=== PATIENT | male | born 1965 | race Caucasian/White ===

== ENCOUNTER 2020-09-28 09:19 | Day surgery (SDC) | payer OTHER ==
[~2020-09-28] VITALS: Ht 175.3 cm; Wt 99.3 kg
--- NOTE | ~2020-09-28 | O ---
[facility] [place] [address] OPERATIVE REPORT Name: MARTÍNEZ CROWDER Room #: 150-3 [facility] M.R.#: [id number] Admission: 09/28/20 Attend Phys: Edilia Jones, Discharge: Date of : 65 Report #: [id number] THIS REPORT FOR: cc: Patricia Tapia MD, Laura A. MD Deardorff,Edilia Mcgarry MD ~ DOC #: [id number] Edilia Jones MD DATE OF SERVICE: 09/28/2020 DATE OF SURGERY: 09/28/2020 PREOPERATIVE DIAGNOSIS: Left palm flexor tenosynovitis of the ring finger. POSTOPERATIVE DIAGNOSIS: Left palm flexor tenosynovitis of the ring finger. PROCEDURE PERFORMED: Left palm incision and debridement with flexor tenosynovectomy. SURGEON: Dr. Edilia Jones. TYPE OF ANESTHESIA: General mask anesthesia. ESTIMATED BLOOD LOSS: Minimal. TOURNIQUET TIME: 20 minutes. COMPLICATIONS: None. CONDITION: Stable. DISPOSITION: To recovery room. 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 He has had multiple episodes of spontaneous opening of the skin and drainage. It has subsequently healed over. We discussed the risks, benefits, alternatives and complications of surgery including but not limited to infection, damage to vessels or nerves, recurrence. We discussed due to his infection, he will have some stiffness in that finger that is residual. We discussed the rationale for doing the surgery is due to multiple episodes of spontaneous rupture of the skin and drainage as well as now he is on the appropriate antibiotics due to the long nature of determining the culture results as well as debriding the infection to decrease any potential tendon rupture. Informed consent was obtained. The correct extremity was identified and labeled myself after verbal confirmation of the patient as well as visual confirmation and signed informed consent. [address] [address] OPERATIVE REPORT Name: MARTÍNEZ CROWDER Room #: 150-3 [facility] M.R.#: [id number] Admission: 09/28/20 Attend Phys: Edilia Jones, Discharge: Date of : 65 Report #: [id number] DESCRIPTION OF PROCEDURE: The patient was brought back to the operating room and placed on the operating table in the supine position. He did receive perioperative Ancef. Left extremity was sterilely prepped and draped in the usual fashion. A timeout was taken to verify correct patient, operative procedure, operative site, all concurred. The arm was exsanguinated proximal to the wrist and then elevated and tourniquet was inflated. Next, a prior Chevron incision was made in the palm, a moderate amount of fluid escaped, it was clear. Moderate amount of tenosynovitis was found around the flexor tendons. This was all debrided with a rongeur. The finger was taken through a passive range of motion. There was no significant inflammation around the flexor tendons distally. The wound was then thoroughly irrigated using a liter of antibiotic saline. The skin was closed with 4-0 nylon suture. The wound was infiltrated with approximately 10 mL of Marcaine. He was placed in a bulky dressing. All fingers were pink and brisk capillary refill at the conclusion of the case after deflation of tourniquet. All sponge and needle counts were correct. The patient transferred to postoperative recovery room in stable condition. MD ROSEANN Ladd/ZOHREH/CRISTIN By: [id number] Edilia Jones MD /nt
[~2020-09-28 09:19] MED LIST: CLARITHROMYCIN500 MG PO; CLOMIPHENE CITR50 MG PO; ETHAMBUTOL HCL400 MG PO; LISINOPRIL-HCT1 EAC1 PO; METOPROLOL SUC100 MG PO; PROAIR HFA8.5 GM INH; RIFABUTIN150 MG PO
[2020-09-28 10:17] LABS: CALCIUM 8.7 mg/dL (8.5-10.1); CREATININE 1.5 mg/dL (0.7-1.3); POTASSIUM 4.5 mmol/L (3.5-5.1)
[2020-09-28 11:12] VITALS: BP 127/68
[2020-09-28 13:12] VITALS: BP 127/68
== END 2020-09-28 13:12 | disposition home or self-care (01) ==
LOC: OR 09:19 → TBA 09:19 → OR 12:44
PROVIDERS: ATTEND Orthopaedic Surgery Hand Surgery
DX: M65.842 Other synovitis and tenosynovitis, left hand (principal); I12.9 Hypertensive chronic kidney disease with stage 1 through stage 4 chronic kidney disease, or unspecified chronic kidney disease; N18.30 Chronic kidney disease, stage 3 unspecified; Z98.890 Other specified postprocedural states; Z79.899 Other long term (current) drug therapy; Z88.0 Allergy status to penicillin; Z88.8 Allergy status to other drugs, medicaments and biological substances
CPT/HCPCS: 50010; 50101; 50386; 56526; 57006; 57091; 57178; 62110; 62900; 70005